=== PATIENT | male | born 1985 | race Caucasian/White ===

== ENCOUNTER 2016-06-03 22:26 | Emergency (ER) | payer OTHER ==
[~2016-06-03] VITALS: Ht 175.3 cm; Wt 104.3 kg
[2016-06-03] MEDS ORDERED: AMOX-430 PO (22:35)
--- NOTE | 2016-06-03 22:35 | NUR ---
Pt walked into ER c/o CP 10/10 pressure pain non radiating. Pt states pain was sudden/constant that started 2hrs prior to arrival
--- NOTE | 2016-06-03 22:46 | NUR ---
DR Aguayo called [facility]. Dr Hankins sheet rock applier will call back
[2016-06-03] MEDS ORDERED: NITROGLYCERIN 0.4 MG/TAB BOTTLE SL ONE ×2 (23:00→23:04)
[2016-06-03] MEDS ORDERED: ASPIRIN 325 MG TABLET PO ONE (23:00)
--- NOTE | 2016-06-03 23:02 | NUR ---
CP after 2nd dose of Nitro Sub lingual is now 5/10 pressure from 9/10 pressure
[2016-06-03 23:03] LABS: BASOPHILS # (AUTO) 0.1 K/uL (0.0-0.2); BASOPHILS % (AUTO) 0.8 % (0.0-2.0); EOSINOPHILS # (AUTO) 0.2 K/uL (0.0-0.7); EOSINOPHILS % (AUTO) 1.8 % (0.0-7.0); HEMATOCRIT 43.6 % (40.0-50.0); HEMOGLOBIN 15.3 g/dL (14.0-18.0); LYMPHOCYTES # (AUTO) 3.8 K/uL (0.8-4.8); LYMPHOCYTES % (AUTO) 36.5 % (20.5-51.5); MEAN CORPUSCULAR HEMOGLOBIN 25.9 uug (27.0-31.0); MEAN CORPUSCULAR HGB CONC 35 g/dL (32.0-37.0); MEAN CORPUSCULAR VOLUME 73.7 fL (82.0-92.0); MONOCYTES # (AUTO) 0.5 K/uL (0.1-1.30); MONOCYTES % (AUTO) 4.6 % (0.0-11.0); NEUTROPHILS # (AUTO) 5.7 K/uL (1.8-8.9); NEUTROPHILS % (AUTO) 56.3 % (38.5-71.5); PLATELET COUNT (AUTO) 324 K/uL (150-450); RED BLOOD CELL COUNT(AUTO) 5.91 MIL/uL (4.70-6.10); RED CELL DISTRIBUTION WIDTH 13.6 % (11.5-14.5); WHITE BLOOD COUNT (AUTO) 10.3 K/uL (4.0-11.2)
[2016-06-03] MEDS ORDERED: ASPIRIN 325 MG TABLET ONE (23:07)
--- NOTE | 2016-06-03 23:07 | NUR ---
Dr Aguayo spoke with Dr Xie color corrector from [facility] and gave 2nd result of 12 lead EKG
[2016-06-03 23:14] LABS: CALCIUM 9.5 mg/dL (8.5-10.1); CREATININE 1.1 mg/dL (0.6-1.3); POTASSIUM 4.3 mmol/L (3.5-5.1)
[2016-06-03 23:30] LABS: EOSINOPHILS % (MANUAL) 2 % (0-8); HYPOCHROMASIA 1+; LYMPHOCYTES % (MANUAL) 37 % (20-40); MONOCYTES % (MANUAL) 5 % (2-10); NEUTROPHILS % (MANUAL) 53 % (42-75)
[2016-06-03 23:31] LABS: PLATELET ESTIMATE ADEQU
[2016-06-03 23:39] VITALS: BP 128/75
[2016-06-03] MEDS ORDERED: NORMAL SALINE FLUSH 10 ML DISP.SYRIN ONE (23:43)
[2016-06-03] MEDS ORDERED: IV NORMAL SALINE 250 ML IV ONE (23:43)
[2016-06-03] MEDS ORDERED: IOHEXOL 350 100 ML INFUS..BTL ONE (23:43)
--- NOTE | 2016-06-03 23:44 | NUR ---
Pt out of unit for CTA via wheelchair
--- NOTE | 2016-06-04 00:02 | NUR ---
Pt back from ct scan with no distress noted
--- NOTE | 2016-06-04 01:08 | NUR ---
Dr Aguayo paged [facility] panel for admission of Patient to hospital. Waiting for call back from Dr Gramajo
--- NOTE | 2016-06-04 01:33 | NUR ---
Pierre desouza in [facility] - 06/04/16 at [id number] Olivier Lowry the
--- NOTE | 2016-06-04 01:33 | NUR ---
DR Aguayo paged DR Lowry for the 2nd time. Waiting for call back
--- NOTE | 2016-06-04 02:17 | NUR ---
Dr Aguayo speaking with Dr Smith addictions counselor for [facility] panel
--- NOTE | 2016-06-04 02:24 | NUR ---
Dr Smith want to repeat troponin prior to admitting Pt
--- NOTE | 2016-06-04 03:22 | NUR ---
IV removed. Catheter intact and site benign. Pressure and 4x4 gauze applied to site. No bleeding noted.
--- NOTE | 2016-06-04 03:31 | NUR ---
Patient discharged to home in stable conditon with brother taking patient home. Written and verbal after care instructions given. Patient verbalizes understanding of instructions. Walked out of ER with steady gait. No distress noted
== END 2016-06-04 03:32 | disposition home or self-care (01) ==
LOC: ER 22:28
DX: R07.2 Precordial pain (principal); F10.20 Alcohol dependence, uncomplicated; F17.200 Nicotine dependence, unspecified, uncomplicated
CPT/HCPCS: 36415 ×2; 71010; 71275; 80048; 84484 ×2; 85025; 85730; 93005 ×2; 99291; A4663; J3490; J7050; Q9967; 70030-TC

== ENCOUNTER 2017-04-26 00:58 | Inpatient (IN) | payer OTHER ==
[~2017-04-26] VITALS: Ht 175.3 cm; Wt 127.5 kg
[~2017-04-26 00:58] MED LIST: AMOX-430 PO
[2017-04-26] MEDS ORDERED: IV NS 1000 ML 1,000 ML IV ONE (01:30)
[2017-04-26 02:01] LABS: BASOPHILS % (AUTO) 0.4 % (0.0-2.0); EOSINOPHILS # (AUTO) 0.1 K/uL (0.0-0.7); EOSINOPHILS % (AUTO) 1.4 % (0.0-7.0); HEMATOCRIT 46.8 % (36.7-47.1); HEMOGLOBIN 16.1 g/dL (12.5-16.3); LYMPHOCYTES # (AUTO) 2.9 K/uL (20.0-40.0); LYMPHOCYTES % (AUTO) 34.8 % (20.5-51.5); MEAN CORPUSCULAR HEMOGLOBIN 27.1 uug (23.8-33.4); MEAN CORPUSCULAR HGB CONC 34 g/dL (32.5-36.3); MEAN CORPUSCULAR VOLUME 78.9 fL (73.0-96.2); MONOCYTES # (AUTO) 0.6 K/uL (2.0-10.0); MONOCYTES % (AUTO) 7.4 % (0.0-11.0); NEUTROPHILS # (AUTO) 4.7 K/uL (1.8-8.9); PLATELET COUNT (AUTO) 205 K/uL (152-348); RED BLOOD CELL COUNT(AUTO) 5.93 MIL/uL (4.06-5.63); WHITE BLOOD COUNT (AUTO) 8.3 K/uL (3.6-10.2)
[2017-04-26 02:17] LABS: BILIRUBIN,TOTAL 0.5 mg/dL (0.2-1.0); CREATININE 1.1 mg/dL (0.6-1.3); POTASSIUM 3.8 mmol/L (3.5-5.1); TOTAL PROTEIN, SERUM 7.4 g/dL (6.4-8.2)
[2017-04-26] MEDS ORDERED: NITROGLYCERIN 0.4 MG/TAB BOTTLE SL ONE ×3 (02:24→03:30)
[2017-04-26] MEDS ORDERED: ASPIRIN 81 MG TAB.CHEW ONE (02:27)
[2017-04-26] MEDS ORDERED: ONDANSETRON IV *ER 4 MG/2 ML VIAL IV ONE (02:30)
[2017-04-26] MEDS ORDERED: ASPIRIN 81 MG TAB.CHEW PO ONE ×2 (02:30→03:30)
[2017-04-26] MEDS ORDERED: ONDANSETRON 4 MG/2 ML VIAL ONE (02:34)
[2017-04-26] MEDS ORDERED: ACETAMINOPHEN 325 MG TABLET PO PRN (03:30)
[2017-04-26] MEDS ORDERED: hydrALAZINE HCL 20 MG/1 ML VIAL IV PRN (03:30)
[2017-04-26] MEDS ORDERED: MAGNESIUM HYDROXIDE 30 ML LIQUID UDC PO PRN (03:30)
[2017-04-26] MEDS ORDERED: Z GUARD REMEDY PASTE 57 GM TUBE TOP PRN (03:30)
[2017-04-26] MEDS ORDERED: HYDROCODONE/APAP 5-325MG TABLET PO PRN (03:30)
[2017-04-26] MEDS ORDERED: ONDANSETRON 4 MG/2 ML VIAL IV PRN (03:30)
[2017-04-26 04:13] VITALS: BP 132/80
[2017-04-26 07:58] LABS: BASOPHILS % (AUTO) 0.4 % (0.0-2.0); EOSINOPHILS # (AUTO) 0.1 K/uL (0.0-0.7); EOSINOPHILS % (AUTO) 1.2 % (0.0-7.0); HEMATOCRIT 47.4 % (36.7-47.1); HEMOGLOBIN 16.1 g/dL (12.5-16.3); LYMPHOCYTES # (AUTO) 2.1 K/uL (20.0-40.0); LYMPHOCYTES % (AUTO) 33.5 % (20.5-51.5); MEAN CORPUSCULAR HEMOGLOBIN 26.9 uug (23.8-33.4); MEAN CORPUSCULAR HGB CONC 34 g/dL (32.5-36.3); MEAN CORPUSCULAR VOLUME 79.4 fL (73.0-96.2); MONOCYTES # (AUTO) 0.4 K/uL (2.0-10.0); MONOCYTES % (AUTO) 6.9 % (0.0-11.0); NEUTROPHILS # (AUTO) 3.6 K/uL (1.8-8.9); PLATELET COUNT (AUTO) 174 K/uL (152-348); RED BLOOD CELL COUNT(AUTO) 5.97 MIL/uL (4.06-5.63); WHITE BLOOD COUNT (AUTO) 6.3 K/uL (3.6-10.2)
[2017-04-26 08:13] LABS: CREATININE 1.1 mg/dL (0.6-1.3); MAGNESIUM 1.9 mg/dL (1.8-2.4); PHOSPHOROUS 4.1 mg/dL (2.5-4.9); POTASSIUM 4.2 mmol/L (3.5-5.1)
[2017-04-26] MEDS ORDERED: ENOXAPARIN SODIUM 40 MG/0.4 ML DISP.SYRIN SQ SCH (09:00)
[2017-04-26 11:38] VITALS: BP 107/63
[2017-04-26] MEDS ORDERED: INFLUENZA VACCINE 2017-2018 0.5 ML DISP.SYRIN IM ONE (16:00)
[2017-04-26 16:12] VITALS: BP 115/63
== END 2017-04-26 16:38 | disposition home or self-care (01) | DRG 203 ==
LOC: ER 01:01 → TELE 03:20
PROVIDERS: ADMIT Nurse Practitioner Acute Care; ATTEND Internal Medicine
DX: R07.89 Other chest pain (principal); Z68.41 Body mass index [BMI] 40.0-44.9, adult; R00.1 Bradycardia, unspecified; E66.01 Morbid (severe) obesity due to excess calories; Z98.84 Bariatric surgery status; F17.210 Nicotine dependence, cigarettes, uncomplicated
CPT/HCPCS: 36415; 70030-TC; 71045; 83735; 84100; 85025; 85730; 90686; 93005; A4663; J1650; J2405; J7030